=== PATIENT | female | born 1935 | race African-American/Black ===

== ENCOUNTER 2016-05-21 11:02 | Emergency (ER) | payer OTHER ==
[2016-05-21 11:43] VITALS: BMI 20.3
--- NOTE | 2016-05-21 12:16 | PDOC ---
History of Present Illness <Yeyo Berger - Last Filed: 05/21/16 14:54> - General History Source: Patient - History of Present Illness Initial Comments: 05/21/16 12:38 Ms. Hughes is a 81 y/o female presenting [facility] the ED [facility] s/p fall last night and fever. Pt. states that she "lost her balance" while standing in the bathroom. She was able to break her fall. Fall was unwitnessed. Denies LOC head pain, neck pain, back pain. Pt. states she feels fine now. Her [facility] reports that she had a fever this morning of 100.1F orally. Pt. is currently being treated for a UTI with ciprofloxacin. Urine Cultures drawn from the facility show no growth. Pt. admits to cough. Denies chills, weight loss/gain, SOB, rhinorrhea, chest pain, dyspnea, edema, palpitations, N/V/D. <Dara Osullivan - Last Filed: 05/21/16 17:47> - General Chief Complaint: Injury Stated Complaint: FALL/FEVER Time Seen by Provider: 05/21/16 11:51 Past History <Yeyo Berger - Last Filed: 05/21/16 14:54> - Past Medical History Anemia: No Asthma: No Cancer: No Cardiac Disorders: Yes (IRREGULAR HEART BEAT ,LONG QT) CVA: Yes (TIA) COPD: No CHF: No Dementia: Yes (MILD DEMENTIA) Diabetes: No GI Disorders: Yes (GERD,DIVERTICULITIS) Disorders: No HTN: Yes Hypercholesterolemia: Yes Liver Disease: No Seizures: No Thyroid Disease: No - Surgical History Abdominal Surgery: No Appendectomy: No Cardiac Surgery: No Cholecystectomy: No Lung Surgery: No Neurologic Surgery: No Orthopedic Surgery: Yes (ARTHROSCOPY LT KNEE) - Immunization History Immunization Up to Date: Yes - Psycho/Social/Smoking Cessation Hx Anxiety: No Suicidal Ideation: No Smoking Status: Yes Smoking History: Unknown if ever smoked Have you smoked in the past 12 months: No Number of Cigarettes Smoked Daily: 0 Information on smoking cessation initiated: No 'Breaking Loose' booklet given: 11/01/11 Hx Alcohol Use: No Drug/Substance Use Hx: No Substance Use Type: None Hx Substance Use Treatment: No <Dara Osullivan - Last Filed: 05/21/16 17:47> - Past Medical History Allergies/Adverse Reactions: Allergies Allergy/AdvReac Type Severity Reaction Status Date / Time Penicillins Allergy Rash Verified 11/25/14 05:58 lactose intolerance AdvReac Uncoded 11/27/14 19:54 Home Medications: Ambulatory Orders Aspirin [ASA -] 81 mg PO DAILY 11/25/14 Cholecalciferol (Vitamin D3) [Vitamin D3] 50,000 unit PO MONTHLY 11/25/14 Diltiazem [Cardizem -] 120 mg PO DAILY 11/25/14 Hypromellose [Artificial Tears] 1 drop OP QID 11/25/14 Melatonin 5 mg PO HS 11/25/14 Methylcellulose (with Sugar) [Fiber Therapy Powder] 5.8 gm PO DAILY 11/25/14 Pravastatin Sodium [Pravachol -] 20 mg PO HS 11/25/14 Ranitidine HCl [Zantac] 150 mg PO BID 11/25/14 Ciprofloxacin [Cipro -] 250 mg PO BID 05/21/16 Lactobacillus Acidophilus [Bacid -] 1 each PO 05/21/16 Oseltamivir Phosphate [Tamiflu] 75 mg PO BID #9 capsule 05/21/16 Tramadol HCl 50 mg PO 05/21/16 *Physical Exam - Vital Signs Last Vital Signs Temp Pulse Resp BP Pulse Ox 100.1 F H 84 17 103/62 96 05/21/16 11:10 05/21/16 11:10 05/21/16 11:10 05/21/16 11:10 05/21/16 11:10 <AuroraYeyo - Last Filed: 05/21/16 14:54> - Vital Signs Last Vital Signs Temp Pulse Resp BP Pulse Ox 100.1 F H 84 17 103/62 96 05/21/16 11:10 05/21/16 11:10 05/21/16 11:10 05/21/16 11:10 05/21/16 11:10 - Physical Exam Comments: 05/21/16 12:49 General: Well appearing soft spoken AA female sitting in hospital bed AAOx4. Pt. is warm to the touch NAD Head: Normocephalic, atraumatic. No step offs, or depressed skull fractures on palpation Lungs: CTAB, Equal B/L chest rise, (-) W/R/R CV: R/R/R, S1 and S2 heard, Grade III systolic murmur over the left 3/4 intercostal space Abdomen: Soft, flat, nontender on palpation, BS x4 (-) tenderness over the suprapubic region Extremities: (-) pain on palpation, PMS intact x4, radial pulses 2+ B/L <Dara Osullivan - Last Filed: 05/21/16 17:47> ED Treatment Course - LABORATORY CBC & Chemistry Diagram: 05/21/16 12:40 05/21/16 12:40 - ADDITIONAL ORDERS Additional order review: Laboratory Results 05/21/16 12:40 Sodium 137 Potassium 3.5 Chloride 101 Carbon Dioxide 27 D Anion Gap 9 BUN 16 D Creatinine 0.9 D Creat Clearance w eGFR 59.94 Random Glucose 119 H D Calcium 8.4 L Total Bilirubin 0.4 AST 46 H D ALT 30 Alkaline Phosphatase 64 Total Protein 7.0 Albumin 3.4 05/21/16 12:20 Influenza Types A,B Antigen (DANITA) - Final Nasopharyngeal Swab - Final 05/21/16 12:40 RBC 3.53 L MCV 97.4 H MCHC 33.5 RDW 12.4 MPV 8.1 Neutrophils % 60.7 D Lymphocytes % 24.4 D Monocytes % 14.6 H Eosinophils % 0.1 D Basophils % 0.2 <Yeyo Berger - Last Filed: 05/21/16 14:54> - LABORATORY CBC & Chemistry Diagram: 05/21/16 12:40 05/21/16 12:40 <Dara Osullivan - Last Filed: 05/21/16 17:47> Medical Decision Making - Medical Decision Making 05/21/16 12:57 Pt. is an 81 y/o female s/p fall last night, fever with known UTI on antibiotics : 1. Will order head CT without contrast d/t fall 2.Order labs and blood cultures to evaluate for infection, hydration status and EKG 3. CXR and rapid influenza ordered to see if there is another source of infection 4. Tylenol for fever 5. Will re-evaluate 05/21/16 14:18 Rapid Flu test is positive for Influenza type A. CMP is WNL and pt. appears hydrated. CT scans shows no acute changes including no bleed or fracture Waiting on pt to give urine sample. Pt.'s daughter states she has incontinence and is not able to do a clean catch. Nursing will obtain a catheter urine sample. Will discharge back to long-term. 05/21/16 17:41 Urine is clean at this time. Will discharge home with flu instructions and tamiflu <Dara Osullivan - Last Filed: 05/21/16 17:47> *DC/Admit/Observation/Transfer <AuroraCynthiaTeja - Last Filed: 05/21/16 14:54> - Discharge Dispostion Admit: No <Dara Osullivan - Last Filed: 05/21/16 17:47> Diagnosis at time of Disposition: Influenza A - Discharge Dispostion [facility]position: [facility] Condition at time of disposition: Stable - Prescriptions Prescriptions: Oseltamivir Phosphate [Tamiflu] 75 mg PO BID #9 capsule - Referrals Referrals: Amalia Beckford MD [Primary Care Provider] - - Patient Instructions Printed Discharge Instructions: DI for Influenza -- Adult Additional Instructions: You have the Flu. Rest and drink plenty of fluids. Take Tamiflu as prescribed for 5 days. Take Tylenol as needed for fever or pain. If your symptoms worsen return to ED. Follow up with PCP in one week
[2016-05-21] MEDS ORDERED: ACETAMINOPHEN 325 MG TABLET (FP) PO ONE (12:21)
--- NOTE | 2016-05-21 12:26 | PDOC ---
*Physical Exam - Vital Signs Last Vital Signs Temp Pulse Resp BP Pulse Ox 100.1 F H 84 17 103/62 96 05/21/16 11:10 05/21/16 11:10 05/21/16 11:10 05/21/16 11:10 05/21/16 11:10 ED Treatment Course - LABORATORY CBC & Chemistry Diagram: 05/21/16 12:40 05/21/16 12:40 Medical Decision Making - Medical Decision Making 05/21/16 16:39 81y F sent to the ED for evaluation after unwitnessed fall last night, pt states she fell because she lost her balance - denies any complaints currently, no LOC, and doesn't think she hit her head. Pt noted to have a fever thsi morning when she departed the NH - pt does complain of some mild cough, and notes there was a flu outbreak in the hospital last month and she was given prophylactic tamiflu. She is also on cipro for a UTI. Pts exam is unermarakble , no signs of trauma, pain on palpation, normal movement of her extermities. pts labs were reviewed, flu + xray negative vitals normal wawaiting UA but if neg will d/c the pt to fu with PMD will ck with ID regarding treating with second course of tamiflu 05/21/16 17:00 discussed with ID - would recommend starting tamilflu *DC/Admit/Observation/Transfer Diagnosis at time of Disposition: Influenza A - Discharge Dispostion Disposition: [facility] Condition at time of disposition: Stable - Prescriptions Prescriptions: Oseltamivir Phosphate [Tamiflu] 75 mg PO BID #9 capsule - Referrals Referrals: Amalia Beckford MD [Primary Care Provider] - - Patient Instructions Printed Discharge Instructions: DI for Influenza -- Adult Additional Instructions: You have the Flu. Rest and drink plenty of fluids. Take Tamiflu as prescribed for 5 days. Take Tylenol as needed for fever or pain. If your symptoms worsen return to ED. Follow up with PCP in one week
[2016-05-21 13:01] LABS: BASOPHIL 0.2 % (0-2.0); EOSINOPHIL 0.1 % (0-4.5); MCH 32.6 pg (25.7-33.7); MCHC 33.5 g/dl (32.0-36.0); MEAN CELL VOLUME 97.4 fl (80-96); MEAN PLT VOLUME 8.1 fl (7.5-11.1); NEUTROPHILS 60.7 % (42.8-82.8); PLATELET COUNT 222 K/MM3 (134-434); RDW 12.4 % (11.6-15.6); WHITE BLOOD COUNT 2.9 K/mm3 (4.0-10.0)
[2016-05-21 13:17] LABS: ALBUMIN 3.4 g/dl (3.4-5.0); BILIRUBIN,TOTAL 0.4 mg/dL (0.2-1.0); CALCIUM 8.4 mg/dL (8.5-10.1); CREATININE 0.9 mg/dL (0.55-1.02)
[2016-05-21 17:03] LABS: URINE APPEARANCE CLOUDY; URINE BILIRUBIN NEGATIVE (NEGATIVE); URINE BLOOD NEGATIVE (NEGATIVE); URINE COLOR DKYELLOW; URINE GLUCOSE (UA) NEGATIVE (NEGATIVE); URINE KETONE NEGATIVE (NEGATIVE); URINE LEUK ESTERASE NEGATIVE (NEGATIVE); URINE NITRITE NEGATIVE (NEGATIVE); URINE UROBILINOGEN NEGATIVE E.U./dl (0.2-1.0)
[2016-05-21] MEDS ORDERED: OSELTAMIVIR PHOSPHATE 75 MG CAPSULE PO ONE (17:04)
[2016-05-21 17:20] LABS: URINE PROTEIN 1+ (NEGATIVE)
[2016-05-21] MEDS ORDERED: OSELTAMIVIR PHOSPHATE 75 MG CAPSULE ONE (18:54)
[2016-05-21 20:00] VITALS: BP 108/67; PULSE 80; TEMP 98.2
== END 2016-05-21 20:00 ==
LOC: JER 11:02
DX: J09.X2 Influenza due to identified novel influenza A virus with other respiratory manifestations (principal); Z86.73 Personal history of transient ischemic attack (TIA), and cerebral infarction without residual deficits; K21.9 Gastro-esophageal reflux disease without esophagitis; I10 Essential (primary) hypertension; E78.00 Pure hypercholesterolemia, unspecified; F03.90 Unspecified dementia, unspecified severity, without behavioral disturbance, psychotic disturbance, mood disturbance, and anxiety; R00.9 Unspecified abnormalities of heart beat; W18.39XA Other fall on same level, initial encounter; Y93.89 Activity, other specified; Y92.091 Bathroom in other non-institutional residence as the place of occurrence of the external cause
CPT/HCPCS: 36415; 70450-TC; 71010-TC; 80053; 81003; 81015; 85025; 87040; 87804; 99282-25

== ENCOUNTER 2016-10-26 10:37 | Day surgery (SDC) | payer OTHER ==
[2016-10-25 12:59] VITALS: BMI 24.3
[2016-10-26 11:18] VITALS: TEMP 97.7
[2016-10-26] MEDS ORDERED: BUPIVACAINE HCL/PF 0.25% (2.5MG/ML) 10 ML VIAL ONE (12:42)
[2016-10-26] MEDS ORDERED: LIDOCAINE HCL 1%, 10 MG/ML (20ML VIAL) ONE (12:42)
[2016-10-26] MEDS ORDERED: methylPREDNISolone ACET (DEPO) 40 MG/1 ML VIAL ONE (12:42)
[2016-10-26] MEDS ORDERED: BUPIVACAINE HCL/PF 0.5% (5MG/ML) 10 ML VIAL ONE (12:42)
[2016-10-26] MEDS ORDERED: BETAMET ACET/BETAMET NA PH 30 MG/5 ML VIAL ONE (12:42)
[2016-10-26] MEDS ORDERED: PROPOFOL 20 ML ONE (13:07)
[2016-10-26] MEDS ORDERED: LIDOCAINE HCL/PF 2% SDV 5ML VIAL ONE (13:07)
[2016-10-26] MEDS ORDERED: LIDOCAINE HCL 1%, 10 MG/ML (20ML VIAL) IJ ONE ×2 (13:29)
[2016-10-26] MEDS ORDERED: BETAMET ACET/BETAMET NA PH 30 MG/5 ML VIAL IM ONE (13:29)
[2016-10-26] MEDS ORDERED: BUPIVACAINE HCL/PF 0.25% (2.5MG/ML) 10 ML VIAL IJ ONE (13:29)
[2016-10-26 15:37] VITALS: BP 148/63; PULSE 56
--- NOTE | 2016-10-26 15:37 | OP ---
DATE OF OPERATION: 10/26/2016 PREOPERATIVE DIAGNOSIS: Low back pain, spinal stenosis, and lumbar radiculopathy. POSTOPERATIVE DIAGNOSIS: Low back pain, spinal stenosis, and lumbar radiculopathy. ANESTHESIA: Local and MAC. ANESTHESIOLOGIST: Shalom Ruiz MD PROCEDURE: Lumbar epidural steroid injection, interlaminar, at right L4 to L5 level, with no dye. I discussed with her about risks, benefits and alternatives of treatment, not only limited to infection, fever, numbness, tingling, weakness, headache, or injury to blood vessels/nerves/muscles. The patient understood, agreed, and signed the written consent. The patient was placed in the prone position with head, abdomen, and legs supported with pillows. The lumbosacral area was prepped, draped with Betadine x3 and alcohol x3. Under intermittent fluoroscopy, right L4-L5 level was identified. At this level, 3 mL of 1% lidocaine was infiltrated into the skin and subcutaneous tissue. A 20-gauge 3-1/2-inch Tuohy needle was used to approach the epidural space with loss of resistance technique, both AP and oblique view. After negative aspiration of blood and CSF, a solution containing 2.5 mL of Celestone mixed with 2.5 mL of preservative-free and 0.25% Marcaine. Total of 5 mL was injected into the epidural space. While needle was withdrawn, 1 mL of 1% lidocaine was infiltrated. Patient bleeding was checked. Betadine was wiped off, sterile bandage was placed. Patient tolerated the procedure well. There was no immediate complication. Patient was transferred to recovery room, observed for some time. Patient will be discharged as per ASU criteria. Patient was given a followup appointment. If there is any problem, call me or report to [facility]. FREYA ATKINSON M.D. PHIL/[id number]
== END 2016-10-26 14:45 ==
LOC: JASU-SURG 10:37
PROVIDERS: ATTEND Physical Medicine & Rehabilitation
PROC: 3E0S33Z Introduction of Anti-inflammatory into Epidural Space, Percutaneous Approach (ICD-10-PCS; 2016-10-26)
PROC: B01BZZZ Fluoroscopy of Spinal Cord (ICD-10-PCS; 2016-10-26)
PROC: 3E0S3BZ Introduction of Anesthetic Agent into Epidural Space, Percutaneous Approach (ICD-10-PCS; principal; 2016-10-26 12:00)
DX: M48.06 Spinal stenosis, lumbar region (principal); M54.16 Radiculopathy, lumbar region; M54.5 Low back pain
CPT/HCPCS: 76000-TC

== ENCOUNTER 2017-02-18 08:13 | Day surgery (SDC) | payer OTHER ==
[2017-02-16 14:28] VITALS: BMI 24.3
[2017-02-18 08:53] VITALS: TEMP 97.7
[2017-02-18] MEDS ORDERED: BETAMET ACET/BETAMET NA PH 30 MG/5 ML VIAL ONE (09:36)
[2017-02-18] MEDS ORDERED: LIDOCAINE HCL 1%, 10 MG/ML (20ML VIAL) ONE (09:36)
[2017-02-18] MEDS ORDERED: BUPIVACAINE HCL/PF 0.25% (2.5MG/ML) 10 ML VIAL ONE (09:37)
[2017-02-18] MEDS ORDERED: KETOROLAC TROMETHAMINE 30 MG/1 ML VIAL ONE (11:15)
[2017-02-18] MEDS ORDERED: PROPOFOL 20 ML ONE (11:15)
[2017-02-18] MEDS ORDERED: LIDOCAINE HCL/PF 2% SDV 5ML VIAL ONE (11:15)
[2017-02-18] MEDS ORDERED: BUPIVACAINE HCL/PF 0.25% (2.5MG/ML) 10 ML VIAL IJ ONE (11:18)
[2017-02-18] MEDS ORDERED: BETAMET ACET/BETAMET NA PH 30 MG/5 ML VIAL IJ ONE (11:18)
[2017-02-18] MEDS ORDERED: LIDOCAINE HCL 1%, 10 MG/ML (50 mL VIAL) IJ ONE (11:18)
--- NOTE | 2017-02-18 12:41 | PROC ---
Procedure Note Procedure: Date: 02/18/2017 : 1935 Age: XX Year(s) Sex: Female Name of the patient: Elli Hughes Preoperative Diagnosis:Low back pain and lumbar radiculopathy on right Postoperative Diagnosis:Same Procedure Performed: Lumbar Epidural Steroid Injection (LESI) on Right L4-5 with NO dye under Fluoroscopy Anesthesia: Local / MAC Anesthesiologist: Procedure: I discussed with the patient in detail about the risks, benefits, and alternatives to treatment not only limited to infection, headache, numbness , weakness, and injury to nerves, blood vessels and muscles. The patient understood, agreed and signed the written consent. The patient was placed in the prone position with the head, abdomen and legs supported with the pillows. The lumbosacral area was prepped and draped with Betadine times three in a sterile fashion. Lumbar vertebrae were identified under the C-arm. At L4-5 level on the right side, 3 ml of 1 % Lidocaine was infiltrated into the skin and subcutaneous tissue. A 3 inch, #20 gauge Tuohy needle was advanced to the epidural space with loss of resistance technique under fluoroscopic guidance. Aspiration was negative for cerebrospinal fluid and blood. A solution of 2.5 ml of Celestone and 2.5 ml of 0.25% Marcaine and a total of 5 ml was injected slowly. While Tuohy needle was withdrawn 2.0 ml of 1 % Lidocaine was infiltrated. Bleeding was checked. Betadine was wiped off. A sterile bandage was placed. The patient tolerated the procedure well. There were no immediate complications. The patient was transferred to the recovery room. The patient was observed for some time and discharged as per ASU criteria. The patient was told to apply ice at the injection site. Follow up appointment was given and also call my office at [phone]. If there is any problem, call my office or report to Emergency Room. Frandy Gunter M.D.
[2017-02-18 13:42] VITALS: BP 140/64; PULSE 76
== END 2017-02-18 14:07 ==
LOC: JASU-SURG 08:13
PROVIDERS: ATTEND Physical Medicine & Rehabilitation
PROC: 3E0S33Z Introduction of Anti-inflammatory into Epidural Space, Percutaneous Approach (ICD-10-PCS; 2017-02-18)
PROC: B01BZZZ Fluoroscopy of Spinal Cord (ICD-10-PCS; 2017-02-18)
PROC: 3E0S3BZ Introduction of Anesthetic Agent into Epidural Space, Percutaneous Approach (ICD-10-PCS; principal; 2017-02-18 10:00)
DX: M54.16 Radiculopathy, lumbar region (principal); M54.5 Low back pain
CPT/HCPCS: 76000-TC

== ENCOUNTER 2017-04-21 14:05 | Emergency (ER) | payer OTHER ==
[2017-04-21 14:36] VITALS: TEMP 98.5; BMI 22.6
--- NOTE | 2017-04-21 15:26 | PDOC ---
History of Present Illness - General Chief Complaint: Pain Stated Complaint: DVT Time Seen by Provider: 04/21/17 14:29 History Source: Patient Exam Limitations: No Limitations - History of Present Illness Initial Comments: 04/21/17 15:20 Patient is an 82F with history of DVT (2012), long qt (s/p recorder, no defibrillator), lupus (in remission), HTN and acid reflux here today complaining of a DVT found in ultrasound as an outpatient in her right leg. She states she has been having pain there for weeks, worsened with walking. She denies fevers, chills, chest pain, and shortness of breath. She states that she otherwise feels fine, outside of the leg. She had a DVT in blood clot in 2012 that she was on warfarin for until 2014. She only takes asa 81 now. She denies any trauma to the leg. Past History - Past Medical History Allergies/Adverse Reactions: Allergies Allergy/AdvReac Type Severity Reaction Status Date / Time Penicillins Allergy Severe Swelling Verified 04/21/17 14:19 lactose intolerance AdvReac Uncoded 04/21/17 14:19 Home Medications: Ambulatory Orders Aspirin [ASA -] 81 mg PO DAILY 11/25/14 Diltiazem [Cardizem -] 120 mg PO DAILY 11/25/14 Pravastatin Sodium [Pravachol -] 20 mg PO HS 11/25/14 Hydrocortisone Valerate [Westcort 0.2% Cream -] 1 applic TP DAILY 10/25/16 Mirtazapine [Remeron -] 15 mg PO HS 10/25/16 Oxybutynin Chloride [Oxybutynin Chloride ER] 5 mg PO DAILY 10/25/16 Sodium Chloride [Camargo Saline] 1 spray BID 10/25/16 Cholecalciferol (Vitamin D3) [Vitamin D3] 50,000 unit PO WEEKLY 02/18/17 Duloxetine HCl [Cymbalta] 20 mg PO DAILY 02/18/17 Fluticasone Prop 0.05% Nasal [Flonase -] 1 - 2 spray NS BID 02/18/17 Miconazole Nitrate [Miconazorb AF] 71 gm TP BID 02/18/17 Rivastigmine [Exelon Patch 9.5 mg/24 Hours -] 1 mg TD DAILY 02/18/17 Vit A/Vit C/Vit E/Zinc/Copper [Preservision Areds Softgel] 1 each PO DAILY 02/18 Acetaminophen [Pain Relief] 650 mg PO Q6H PRN 04/21/17 Fexofenadine HCl 180 mg PO HS 04/21/17 Rivaroxaban [Xarelto -] 15 mg PO DAILY #42 tab 04/21/17 Tramadol HCl 50 mg PO DAILY 04/21/17 Anemia: No Asthma: No Cancer: No Cardiac Disorders: Yes (IRREGULAR HEART BEAT ,LONG QT) CVA: Yes (TIA) COPD: No CHF: No Dementia: Yes (MILD DEMENTIA) Diabetes: No GI Disorders: Yes (GERD,DIVERTICULITIS) Disorders: No HTN: Yes Hypercholesterolemia: Yes Liver Disease: No Seizures: No Thyroid Disease: No - Surgical History Abdominal Surgery: No Appendectomy: No Cardiac Surgery: No Cholecystectomy: No Lung Surgery: No Neurologic Surgery: No Orthopedic Surgery: Yes (ARTHROSCOPY LT KNEE) - Immunization History Immunization Up to Date: Yes - Suicide/Smoking/Psychosocial Hx Smoking Status: Yes Smoking History: Never smoked Have you smoked in the past 12 months: No Number of Cigarettes Smoked Daily: 0 'Breaking Loose' booklet given: 11/01/11 Hx Alcohol Use: No Drug/Substance Use Hx: No Substance Use Type: None Hx Substance Use Treatment: No Review of Systems - Review of Systems Comments:: 04/21/17 15:22 GENERAL/CONSTITUTIONAL: No fever or chills. HEAD, EYES, EARS, NOSE AND THROAT: No change in vision. No ear pain or discharge. No sore throat. CARDIOVASCULAR: No chest pain or shortness of breath RESPIRATORY: No cough, wheezing, or hemoptysis. GASTROINTESTINAL: No nausea, vomiting, diarrhea or constipation. MUSCULOSKELETAL: Pain in right leg. No neck or back pain. SKIN: No rash NEUROLOGIC: No headache, vertigo, loss of consciousness, or change in strength/ sensation. ENDOCRINE: No increased thirst. No abnormal weight change *Physical Exam - Vital Signs Last Vital Signs Temp Pulse Resp BP Pulse Ox 98.5 F 84 17 140/80 99 04/21/17 14:09 04/21/17 14:09 04/21/17 14:09 04/21/17 14:09 04/21/17 14:09 - Physical Exam Comments: 04/21/17 15:25 GENERAL: Awake, alert, and fully oriented, in no acute distress R LEG: Swollen compared to left, neurovascularly intact distal to clot, tender with flexion. HEAD: No signs of trauma, normocephalic, atraumatic EYES: PERRLA, EOMI, sclera anicteric, conjunctiva clear ENT: Auricles normal inspection, hearing grossly normal, nares patent, oropharynx clear without exudates. Moist mucosa LUNGS: No distress, speaks full sentences, clear to auscultation bilaterally HEART: Regular rate and rhythm, normal S1 and S2, no murmurs, rubs or gallops, peripheral pulses normal and equal bilaterally. ABDOMEN: Soft, nontender, normoactive bowel sounds. No guarding, no rebound. No masses NEUROLOGICAL: Cranial nerves II through XII grossly intact. Normal speech, no focal sensorimotor deficits SKIN: Warm, Dry, normal turgor, no rashes or lesions noted. ED Treatment Course - LABORATORY CBC & Chemistry Diagram: 04/21/17 15:27 04/21/17 15:27 - RADIOLOGY Radiology Studies Ordered: Category Date Time Status CXRPORT [CHEST X-RAY PORTABLE*] [RAD] Stat Radiology 04/21/17 14:53 Ordered Medical Decision Making - Medical Decision Making 04/21/17 15:28 Patient is an 82F with history of DVT (2012), long qt (s/p recorder, no defibrillator), lupus (in remission), HTN and acid reflux here today with DVT. Dr Silver called, wants to start on xarelto. Will workup with basic labs and coags before starting anticoagulation. EKG shows RBBB with normal sinus rhythm, unchanged from prior EKG [address] elevations/depressions, no t wave abnormalities. No sighs of right heart strain. Laboratory Tests 04/21/17 04/21/17 15:27 15:27 WBC 3.3 L Hgb 11.0 Hct 33.4 Plt Count 234 BUN 15 Creatinine 0.7 D CBC normal, CMP normal. CXR normal. 04/21/17 16:[address] Silver, feels comfortable with outpatient follow up. Will see patient next week. Will give first dose of xarelto here, then discharge. 04/21/17 17:00 Paper script written for xarelto due to patient's snf's handling of prescriptions. Script written for 15mg of xarelto BID for 21 days. *DC/Admit/Observation/Transfer Diagnosis at time of Disposition: DVT (deep venous thrombosis) - Discharge Dispostion Disposition: HOME Condition at time of disposition: Good Admit: No - Prescriptions Prescriptions: Rivaroxaban [Xarelto -] 15 mg PO DAILY #42 tab - Referrals Referrals: Aayush Silver MD [Primary Care Provider] - Scottie Dickey MD [Staff Physician] - - Patient Instructions Printed Discharge Instructions: DI for Deep Vein Thrombosis Additional Instructions: You were seen today in the ED for a DVT, a blood clot in your leg. Please follow up with Dr Silver in the next week. Please take your Xarelto as prescribed. Please return if you have any new, worsening or concerning symptoms , especially chest pain or shortness of breath. - Post Discharge Activity
[2017-04-21 15:35] LABS: MEAN PLT VOLUME 8.3 fl (7.5-11.1); PLATELET COUNT 234 K/MM3 (134-434); RDW 12.4 % (11.6-15.6); WHITE BLOOD COUNT 3.3 K/mm3 (4.0-10.0)
[2017-04-21 15:59] LABS: ALBUMIN 3.5 g/dl (3.4-5.0); ANION GAP 9 (8-16); BILIRUBIN,TOTAL 0.2 mg/dL (0.2-1.0); CALCIUM 9.2 mg/dL (8.5-10.1); CO2 29 mmol/L (21-32); CREATININE 0.7 mg/dL (0.55-1.02); GLUCOSE,RANDOM 95 mg/dL (74-106); SGOT/AST 22 U/L (15-37); SGPT/ALT 21 U/L (12-78); TOT PROT 6.6 g/dl (6.4-8.2)
[2017-04-21 16:00] LABS: ALK PHOS 83 U/L (45-117)
--- NOTE | 2017-04-21 16:04 | PDOC ---
Attending Attestation - Resident Resident Name: Rdoriguez Lowry - ED Attending Attestation I have performed the following: I have examined & evaluated the patient, The case was reviewed & discussed with the resident, I agree w/resident's findings & plan, Exceptions are as noted - HPI HPI: 04/21/17 15:52 82 F with h/o DVT (2012, now off coumadin), long QT, SLE, HTN, presenting to ER with confirmed DVT. Pt states that she has been having pain in her RLE for weeks. Denies CP/SOB. Pt had outpt ultrasound today that confirmed R popliteal DVT. Pt denies any other complaints. - Physicial Exam PE: 04/21/17 16:04 "GENERAL: Awake, alert, and fully oriented, in no acute distress HEAD: No signs of trauma EYES: PERRLA, EOMI, sclera anicteric, conjunctiva clear ENT: Auricles normal inspection, hearing grossly normal, nares patent, oropharynx clear without exudates. Moist mucosa NECK: Nontender, no stepoffs, Normal ROM, supple, no lymphadenopathy, JVD, or masses LUNGS: Breath sounds equal, clear to auscultation bilaterally. No wheezes, and no crackles HEART: Regular rate and rhythm, normal S1 and S2, no murmurs, rubs or gallops ABDOMEN: Soft, nontender, normoactive bowel sounds. No guarding, no rebound. No masses EXTREMITIES: +R calf tenderness NEUROLOGICAL: Cranial nerves II through XII intact. 5/5 strength and sensation in all extremities, Normal speech, normal gait SKIN: Warm, Dry, normal turgor, no rashes or lesions noted. " - Medical Decision Making 04/21/17 16:04 82 F with confirmed DVT in R popliteal vein. No s/s of PE at this time. - Labs, coags - Anticoagulation 04/21/17 16:36 CBC,CMP WBC 3.3 K/mm3 (4.0-10.0) L 04/21/17 15:27 RBC 3.44 M/mm3 (3.60-5.2) L 04/21/17 15:27 Hgb 11.0 GM/dL (10.7-15.3) 04/21/17 15:27 Hct 33.4 % (32.4-45.2) 04/21/17 15:27 MCV 97.0 fl (80-96) H 04/21/17 15:27 MCH 32.0 pg (25.7-33.7) 04/21/17 15: MCHC 33.0 g/dl (32.0-36.0) 04/21/17 15:27 RDW 12.4 % (11.6-15.6) 04/21/17 15:27 Plt Count 234 K/MM3 (134-434) 04/21/17 15: MPV 8.3 fl (7.5-11.1) 04/21/17 15:27 Sodium 142 mmol/L (136-145) 04/21/17 15: Potassium 4.2 mmol/L (3.5-5.1) 04/21/17 15: Chloride 104 mmol/L (98-107) 04/21/17 15: Carbon Dioxide 29 mmol/L (21-32) 04/21/17 15:27 Anion Gap 9 (8-16) 04/21/17 15:27 BUN 15 mg/dL (7-18) 04/21/17 15:27 Creatinine 0.7 mg/dL (0.55-1.02) D 04/21/17 15:27 Creat Clearance w eGFR > 60 (>60) 04/21/17 15:27 Random Glucose 95 mg/dL (74-106) D 04/21/17 15:27 Calcium 9.2 mg/dL (8.5-10.1) 04/21/17 15:27 Total Bilirubin 0.2 mg/dL (0.2-1.0) D 04/21/17 15:27 AST 22 U/L (15-37) D 04/21/17 15:27 ALT 21 U/L (12-78) D 04/21/17 15:27 Alkaline Phosphatase 83 U/L (45-117) D 04/21/17 15:27 Total Protein 6.6 g/dl (6.4-8.2) 04/21/17 15:27 Albumin 3.5 g/dl (3.4-5.0) 04/21/17 15:27 Spoke with pt's PMD, Dr. Silver, who agrees with plan to start pt on Xarelto and f/u in clinic in 1 week. I discussed the physical exam findings, ancillary test results and final diagnoses with the patient. I answered all of the patient's questions. The patient was satisfied with the care received and felt comfortable with the discharge plan and treatment plan. The patient agrees to follow up with the primary care physician within 24-72 hours.
[2017-04-21] MEDS ORDERED: RIVAROXABAN 15 MG TABLET PO ONE (16:06)
--- NOTE | 2017-04-21 16:29 | EKG ---
Test Reason : Blood Pressure : / mmHG Vent. Rate : 066 BPM Atrial Rate : 066 BPM P-R Int : 196 ms QRS Dur : 126 ms QT Int : 482 ms P-R-T Axes : 067 048 059 degrees QTc Int : 505 ms NORMAL SINUS RHYTHM WITH SINUS ARRHYTHMIA RIGHT BUNDLE BRANCH BLOCK ABNORMAL ECG WHEN COMPARED WITH ECG OF 26-NOV-2014 10:15, QT HAS LENGTHENED Confirmed by EMILY DAVISON, MERCEDES ([id number]) on 04/21/2017 4:29:22 PM Referred By: Confirmed By:MERCEDES DIAZ MD
[2017-04-21] MEDS ORDERED: PRESCRIPTION PAD 1 EACH EACH NR ONE (16:52)
[2017-04-21 17:09] VITALS: BP 140/76; PULSE 74
[2017-04-21 17:11] LABS: INR 1.02 (0.82-1.09); PROTHROMBIN TIME (PATIENT) 11.5 SEC (9.98-11.88)
== END 2017-04-21 17:15 | disposition home or self-care (01) ==
LOC: JER 14:05
DX: I82.491 Acute embolism and thrombosis of other specified deep vein of right lower extremity (principal); Z79.01 Long term (current) use of anticoagulants; I10 Essential (primary) hypertension; K21.9 Gastro-esophageal reflux disease without esophagitis; F03.90 Unspecified dementia, unspecified severity, without behavioral disturbance, psychotic disturbance, mood disturbance, and anxiety; Z86.73 Personal history of transient ischemic attack (TIA), and cerebral infarction without residual deficits
CPT/HCPCS: 36415; 71010-TC; 80053; 85027; 85610; 85730; 93005; 93010; 99284-25

== ENCOUNTER 2019-05-07 15:03 | Emergency (ER) | payer OTHER ==
[2019-05-07 15:44] VITALS: BMI 24.5
--- NOTE | 2019-05-07 16:03 | PDOC ---
History of Present Illness - General Chief Complaint: Injury Stated Complaint: FALL/SOB Time Seen by Provider: 05/07/19 16:03 History Source: Patient, Family (daughter) Exam Limitations: No Limitations - History of Present Illness Initial Comments: 05/07/19 16:16 84yF w PMHx dementia, TIA, HTN, HLD, CAD, GERD, arthritis, DVT on xarelto, heart arrhythmia w loop recorder presenting from [facility] w syncope. Pt is a poor historian with intermittent amnesia. Unwitnessed fall x3 on morning, evening, sat evening. [facility] staff found her on her side each time. Pt denies LOC during these episodes. Last took tylenol 9a this morning. Pt denies fever, headache, vision change, nausea, chest/AB pain, urinary/bowel mvmt changes. Pt ambulates w walker at baseline. tPA Exclusion Checklist 0-3hr - Time Elapsed Date last known well: 05/06/19 Time last known well: 01:00 Elaspsed time: 1 Day(s) and 18 Hour(s) and 48 Minutes - Thrombolytic Therapy Candidate Is the patient eligible for Thrombolytic Therapy?: No - Relative Exclusion Criteria 0-3h Stroke severity too mild: Yes - Ineligibility reason(s) Reasons No tPA given: Outside of window - delayed arrival, See reason(s) noted above NIH Stroke Scale - Last Known Well Date/Time & Onset Date Last Known Well: 05/06/19 Time Last Known Well: 01:00 - Initial Evaluation Level of consciousness: Alert Ask patient the month and their age: Answers both correctly Ask patient to open & close eyes; make fist and let go: Obeys both correctly Best gaze (horizontal eye movement): Normal Visual field testing: No visual field loss Facial paresis (Show teeth/raise eyebrows/close eyes tight): Minor paralysis ( flattened nasolabial fold, asymmetry on smiling) Motor Function: Left Arm: Normal Motor Function: Right Arm: Normal (extends arm 90 (or 45) degrees for 10 seconds without drift Motor Function: Left Leg: Normal (extends leg 30 degrees for 5 seconds without drift) Motor Function: Right Leg: Normal (extends leg 30 degrees for 5 seconds without drift) Limb Ataxia: No ataxia Sensory(Use pinprick test arms,legs,trunk,face/side to side): Normal Best language (Describe picture, name items, read sentences): No Aphasia Dysarthria (read several words): Normal articulation Extinction and Inattention: No abnormality - Total Score NIH Stroke Scale Score: 1 Past History - Past Medical History Allergies/Adverse Reactions: Allergies Allergy/AdvReac Type Severity Reaction Status Date / Time Penicillins Allergy Severe Swelling Verified 05/07/19 15:44 lactose intolerance AdvReac Uncoded 05/07/19 15:44 Home Medications: Ambulatory Orders Aspirin [ASA -] 81 mg PO DAILY 11/25/14 Diltiazem [Cardizem -] 120 mg PO DAILY 11/25/14 Pravastatin Sodium [Pravachol -] 20 mg PO HS 11/25/14 Hydrocortisone Valerate [Westcort 0.2% Cream -] 1 applic TP DAILY 10/25/16 Mirtazapine [Remeron -] 15 mg PO HS 10/25/16 Oxybutynin Chloride [Oxybutynin Chloride ER] 5 mg PO DAILY 10/25/16 Sodium Chloride [Elizabeth Saline] 1 spray BID 10/25/16 Cholecalciferol (Vitamin D3) [Vitamin D3] 50,000 unit PO WEEKLY 02/18/17 Duloxetine HCl [Cymbalta] 20 mg PO DAILY 02/18/17 Fluticasone Prop 0.05% Nasal [Flonase -] 1 - 2 spray NS BID 02/18/17 Miconazole Nitrate [Miconazorb AF] 71 gm TP BID 02/18/17 Rivastigmine [Exelon Patch 9.5 mg/24 Hours -] 1 mg TD DAILY 02/18/17 Vit A/Vit C/Vit E/Zinc/Copper [Preservision Areds Softgel] 1 each PO DAILY 02/18 Acetaminophen [Pain Relief] 650 mg PO Q6H PRN 04/21/17 Fexofenadine HCl 180 mg PO HS 04/21/17 Rivaroxaban [Xarelto] 15 mg PO DAILY #42 tab 04/21/17 Tramadol HCl 50 mg PO DAILY 04/21/17 Anemia: No Asthma: No Cancer: No Cardiac Disorders: Yes (IRREGULAR HEART BEAT ,LONG QT) CVA: Yes (TIA) COPD: No CHF: No Dementia: Yes (MILD DEMENTIA) Diabetes: No GI Disorders: Yes (GERD,DIVERTICULITIS) Disorders: No HTN: Yes Hypercholesterolemia: Yes Liver Disease: No Seizures: No Thyroid Disease: No - Surgical History Abdominal Surgery: No Appendectomy: No Cardiac Surgery: No Cholecystectomy: No Lung Surgery: No Neurologic Surgery: No Orthopedic Surgery: Yes (ARTHROSCOPY LT KNEE) - Immunization History Immunization Up to Date: Yes - Psycho Social/Smoking Cessation Hx Smoking Status: Yes Smoking History: Unknown if ever smoked Have you smoked in the past 12 months: No Number of Cigarettes Smoked Daily: 0 Information on smoking cessation initiated: No 'Breaking Loose' booklet given: 11/01/11 Hx Alcohol Use: No Drug/Substance Use Hx: No Substance Use Type: None Hx Substance Use Treatment: No Review of Systems - Review of Systems Constitutional: No: Chills, Fever HEENTM: No: Eye Pain, Nose Pain, Throat Pain, Mouth Pain Respiratory: No: Cough, Shortness of Breath Cardiac (ROS): Yes: Syncope. No: Chest Pain, Palpitations ABD/GI: No: Abdominal Distended, Constipated, Diarrhea, Nausea, Vomiting : No: Burning, Dysuria, Discharge, Hematuria Musculoskeletal: No: Back Pain, Joint Pain Integumentary: No: Bruising, Flushing, Lesions Neurological: No: Headache, Seizure, Tingling Psychiatric: No: Anxiety, Depression, Frequent Crying Endocrine: No: Excessive Sweating, Flushing, Intolerance to Cold, Intolerance to Heat Hematologic/Lymphatic: No: Anemia, Blood Clots *Physical Exam - Vital Signs Last Vital Signs Temp Pulse Resp BP Pulse Ox 98.0 F 91 H 16 135/68 100 05/07/19 15:05 05/07/19 15:05 05/07/19 15:05 05/07/19 15:05 05/07/19 15:05 - Physical Exam General Appearance: Yes: Nourished, Appropriately Dressed. No: Apparent Distress HEENT: positive: EOMI, HUMBERTO, Normal Voice. negative: Scleral Icterus (R), Scleral Icterus (L), Nasal Congestion, Rhinorrhea Neck: positive: Supple. negative: Tender, Rigid Respiratory/Chest: positive: Decreased Breath Sounds (yaya), Crackles (yaya basilar). negative: Chest Tender, Respiratory Distress, Accessory Muscle Use, Labored Respiration, Rhonchi, Stridor, Wheezing Cardiovascular: positive: Regular Rhythm, Regular Rate, S1, S2, Systolic Murmur. negative: Edema Gastrointestinal/Abdominal: positive: Normal Bowel Sounds, Flat, Soft. negative : Tender, Organomegaly Musculoskeletal: positive: Normal Inspection. negative: CVA Tenderness (R), CVA Tenderness (L), Vertebral Tenderness Extremity: positive: Normal Capillary Refill Integumentary: positive: Normal Color Neurologic: positive: production support consultant II-XII NML intact, Fully Oriented, Alert, Normal Response, Responsive, Facial Droop (R eye ptosis, L mouth droop). negative: Motor Strength 5/5 (4/5 strength throughout), Sensory Deficit, Confused, Disoriented ED Treatment Course - LABORATORY CBC & Chemistry Diagram: 05/07/19 17:25 05/07/19 17:25 Medical Decision Making - Medical Decision Making 05/07/19 16:56 Head/c-spine CT - no acute bleed/infarct/fracture/dislocation EKG NSR, RBBB, HR 80, QTc 500, new TWI V3 vs 21/04/17 CXR no infiltrates/consolidation --- 84yF w PMHx dementia, TIA, HTN, HLD, CAD, GERD, arthritis, DVT on xarelto, heart arrhythmia w loop recorder presenting from [facility] syncope. Has CVA ( new R eye ptosis, L mouth droop), NIHSS 1, tPA not given d/t last well known > 3hrs and mild symptoms. Low concern for ACS (neg trop, NSR EKG) vs PNA (clear CXR) vs UTI (clean). Head/c-spine CT - no acute bleed/infarct/fracture/ dislocation Given duoneb. DC home w PCP f/u 05/07/19 19:50 Discharge - Discharge Information Problems reviewed: Yes Clinical Impression/Diagnosis: CVA (cerebral vascular accident) Qualifiers: CVA mechanism: unspecified Qualified Code(s): I63.9 - Cerebral infarction, unspecified Syncope Qualifiers: Syncope type: unspecified Qualified Code(s): R55 - Syncope and collapse Condition: Good Disposition: HOME - Admission No - Follow up/Referral Referrals: Aayush Silver MD [Primary Care Provider] - - Patient Discharge Instructions Patient Printed Discharge Instructions: DI for Stroke-Ischemic Additional Instructions: You were seen for falling down. Your workup shows that you had a stroke. Please follow up with your primary care doctor regarding this visit. Talk about whether you should continue to take Xarelto Come back to the ED if you fall again, chest pain, vomiting, vision changes, or trouble breathing. - Post Discharge Activity
[2019-05-07] MEDS ORDERED: ALBUTEROL SO4 2.5/IPRATROPIUM 0.5 INH SOL 3 ML VIAL.NEB. NEB ONE (16:31)
[2019-05-07 17:41] LABS: BASO % 0.9 % (0-2.0); EOS % 1.6 % (0-4.5); HEMATOCRIT 32.6 % (32.4-45.2); HEMOGLOBIN 10.6 GM/dL (10.7-15.3); LYMPH % 26.3 % (8-40); MCH 32.7 pg (25.7-33.7); MCHC 32.7 g/dl (32.0-36.0); MEAN PLT VOLUME 9.5 fl (7.5-11.1); MONO % 8.5 % (3.8-10.2); NEUT % 62.7 % (42.8-82.8); PLATELET COUNT 265 K/MM3 (134-434); RBC 3.26 M/mm3 (3.60-5.2); RDW 13.1 % (11.6-15.6); WHITE BLOOD COUNT 6.4 K/mm3 (4.0-10.0)
[2019-05-07 18:04] LABS: INR 1.26 (0.83-1.09); PROTHROMBIN TIME (PATIENT) 14.9 SEC (9.7-13.0)
[2019-05-07 18:15] LABS: ALBUMIN 3.3 g/dl (3.4-5.0); ALK PHOS 76 U/L (45-117); ANION GAP 6 MMOL/L (8-16); BILIRUBIN,TOTAL 0.4 mg/dL (0.2-1); BLOOD UREA NITROGEN 14.9 mg/dL (7-18); CHLORIDE 107 mmol/L (98-107); CO2 28 mmol/L (21-32); CREATININE 0.8 mg/dL (0.55-1.3); GLUCOSE,RANDOM 96 mg/dL (74-106); POTASSIUM 4.7 mmol/L (3.5-5.1); SGOT/AST 30 U/L (15-37); SGPT/ALT 21 U/L (13-61); SODIUM 141 mmol/L (136-145)
[2019-05-07 19:15] LABS: EPI CELLS 3.9 /HPF (0-5/HPF); HYALINE CASTS 4 /lpf (0-8); URINE APPEARANCE CLEAR; URINE BACTERIA 9.1 /hpf (NEGATIVE); URINE BILIRUBIN NEGATIVE (NEGATIVE); URINE COLOR YELLOW; URINE GLUCOSE (UA) NEGATIVE (NEGATIVE); URINE KETONE NEGATIVE (NEGATIVE); URINE LEUK ESTERASE TRACE (NEGATIVE); URINE NITRITE NEGATIVE (NEGATIVE); URINE PROTEIN NEGATIVE (NEGATIVE); URINE RBC 6 /hpf (0-4); URINE WBC 4 /hpf (0-5)
--- NOTE | 2019-05-07 19:29 | PDOC ---
Documentation entered by Delia Euceda SCRIBE, acting as scribe for Lali Frias MD. Lali Frias MD: This documentation has been prepared by the Ok bernard Nirvannie, SCRIBE, under my direction and personally reviewed by me in its entirety. I confirm that the documentation accurately reflects all work, treatment, procedures, and medical decision making performed by me. Attending Attestation - Resident Resident Name: Kemar Darden - ED Attending Attestation I have performed the following: I have examined & evaluated the patient, The case was reviewed & discussed with the resident, I agree w/resident's findings & plan, Exceptions are as noted - HPI HPI: 05/07/19 18:05 The patient is an 84 year old female, with a significant past medical history of dementia, TIA, HTN, HLD, CAD, GERD, arthritis, DVT (on Xarelto), arrhythmia ( s/p loop recorder), who presents to the [facility] emergency department s/p syncope and 3 unwitnessed falls (05/01, 05/03, 05/05). She denies recent chest pain or shortness of breath. Allergies: Penicillins, Lactose Primary Care Physician: Reji simon [facility] - Physicial Exam PE: 05/07/19 18:51 Alert and conversant 84-year-old female resting on the gurney no acute distress Head no scalp lacerations, no facial forehead hematomas Neck no appreciable midline neck tenderness Lungs clear to auscultation bilaterally CVS regular rate and rhythm S1-S2 Skin warm and dry Neuro alert and conversant moving all her extremities - Medical Decision Making 05/07/19 18:53 Patient has been at a care home resident for the past 6 years and in the past week she has had increasing falls Patient is alert, poor historian, she readily answer simple questions CAT scan of the head does not show any acute intracranial pathology Labs were reviewed and essentially unremarkable CAT scan of the C-spine was negative for any acute fracture or dislocation 05/07/19 19:25 UA negative pt will be discharged back to [facility] since no infection or acute findings on her neuro exam or imaging studies were found spoke with the daughter and she is in agreement with the plan
[2019-05-07 20:35] VITALS: BP 158/69; PULSE 69; TEMP 98.1
--- NOTE | 2019-05-08 09:30 | EKG ---
Test Reason : Blood Pressure : / mmHG Vent. Rate : 080 BPM Atrial Rate : 080 BPM P-R Int : 174 ms QRS Dur : 120 ms QT Int : 434 ms P-R-T Axes : 057 039 037 degrees QTc Int : 500 ms NORMAL SINUS RHYTHM RIGHT BUNDLE BRANCH BLOCK ABNORMAL ECG WHEN COMPARED WITH ECG OF 21-APR-2017 15:02, NO SIGNIFICANT CHANGE WAS FOUND Confirmed by Stephan Melendrez MD ([id number]) on 05/08/2019 9:29:35 AM Referred By: Confirmed By:Stephan Melendrez MD
== END 2019-05-07 20:41 ==
LOC: JER 15:03 → SUPCPDRO 15:03 → JER 20:41
PROC: 3E0F7GC Introduction of Other Therapeutic Substance into Respiratory Tract, Via Natural or Artificial Opening (ICD-10-PCS; principal; 2019-05-07)
DX: I63.9 Cerebral infarction, unspecified (principal); R29.6 Repeated falls; I10 Essential (primary) hypertension; E78.00 Pure hypercholesterolemia, unspecified; F03.90 Unspecified dementia, unspecified severity, without behavioral disturbance, psychotic disturbance, mood disturbance, and anxiety; E73.9 Lactose intolerance, unspecified; Z87.19 Personal history of other diseases of the digestive system; Z86.718 Personal history of other venous thrombosis and embolism; Z79.01 Long term (current) use of anticoagulants; Z95.818 Presence of other cardiac implants and grafts; Z88.0 Allergy status to penicillin
CPT/HCPCS: 36415; 70450-TC; 71045-TC-FY; 72125-TC; 80053; 81003; 82550; 82553; 83605; 84484; 85025; 85610; 86850; 86900; 86901; 87040; 87086; 93005; 93010; 99282-25